=== PATIENT | female | born 1970 | race Caucasian/White ===

== ENCOUNTER 2022-02-15 15:16 | Inpatient (IN) ==
[2022-02-15] MEDS ORDERED: ONDANSETRON 4 MG/2 ML VIAL IV STA (18:17)
[2022-02-15] MEDS ORDERED: SODIUM CHLORIDE 0.9% 1,000 ML IV STA (18:17)
[2022-02-15] MEDS ORDERED: cefTRIAXone 1,000 MG in SODIUM CHLORIDE 0.9% 100 ML IV STA (18:17)
[2022-02-15] MEDS ORDERED: DOXYCYCLINE HYCLATE INJ 100 MG in SODIUM CHLORIDE 0.9% 100 ML IV STA (19:26)
[2022-02-15] MEDS ORDERED: metroNIDAZOLE INJ 500 MG/100 ML PREMIX IV STA (19:26)
[2022-02-15 19:32] LABS: Basophils % 0.4 % (0.0-0.8); Hematocrit 39.5 VOL% (35.7-47.0); Hemoglobin 13.4 GM/DL (12.0-16.0); Immature Granulocytes % 0.4 %; Immature Granulocytes Absolute 0.03 #; Lymphocytes # 0.9 10*3/uL (1.4-4.0); Lymphocytes % 12.8 % (21.3-54.2); Mean Corpuscular HGB Conc 33.9 GM/DL (32-36); Mean Corpuscular Volume 90.4 FL (87-102); Monocytes # 0.2 10*3/uL (0.11-0.8); Monocytes % 3.4 % (1.7-12.7); Platelet Count 143 T/CUMM (130-400); Red Blood Count 4.37 MC/CUMM (3.8-5.5); Red Cell Distribution Width 13.2 % (9.3-17.3); White Blood Count 6.7 T/CUMM (4-12)
[2022-02-15 19:51] LABS: Band Neutrophils 13 % (0-10); Lymphocytes 8 % (20-55); Myelocytes 1 %; Total Cells Counted 100
[2022-02-15 19:52] LABS: Albumin 3.3 G/DL (3.4-5.0); Bilirubin,Total 0.4 MG/DL (0.20-1.00); Calcium 8.4 MG/DL (8.5-10.1); Osmolality,Calculated 266.8 MOS/KG (273-304); Platelet Estimate Adequate; Total Protein 6.8 G/DL (6.4-8.2)
[2022-02-15 20:35] LABS: Hyaline Casts,Urine 23 /LPF (0-3); Mucus,Urine Occasional /LPF (Occasional); RBC,Urine 614 /HPF (0-4)
[2022-02-15 20:36] LABS: Bilirubin,Urine Negative (Negative); Blood, Urine Large mg/dL (Negative); Glucose,Urine (UA) Negative (Negative); Ketones,Urine Negative (Negative); Nitrite,Urine Negative (Negative); Protein,Urine 100 mg/dL (Negative); Urine Appearance Slightly Cloudy (Clear); Urine Color Yellow (Yellow); Urine Specific Gravity 1.025 (1.001-1.035); Urine Urobilinogen 0.2 eU/dL (<2.0); Urine pH 5.5 (4.5-8.0)
[2022-02-15] MEDS ORDERED: ONDANSETRON 4 MG/2 ML VIAL IV PRN (20:49)
[2022-02-15] MEDS ORDERED: DEXTROSE 10% 250 ML BAG IV PRN (20:49)
[2022-02-15] MEDS ORDERED: ACETAMINOPHEN 325 MG TABLET PO PRN (20:49)
[2022-02-15] MEDS ORDERED: GLUCAGON 1 MG VIAL IM PRN (20:49)
[2022-02-15 20:51] LABS: Barbiturates Screen,Urine Negative (Negative); Benzodiazepines Screen,Urine Negative (Negative); Cannabinoid Screen,Urine Positive (Negative); Opiate Screen,Urine Negative (Negative); Phencyclidine Screen,Urine Negative (Negative)
[2022-02-15] MEDS: SODIUM CHLORIDE 0.9% 1,000 ML IV SCH (22:55)
[2022-02-16] MEDS: metroNIDAZOLE INJ 500 MG/100 ML PREMIX IV SCH ×3 (06:00→23:49)
[2022-02-16] MEDS: SODIUM CHLORIDE 0.9% 1,000 ML IV SCH ×2 (06:03→14:35)
[2022-02-16 06:39] LABS: Basophils % 0.2 % (0.0-0.8); Hematocrit 34.3 VOL% (35.7-47.0); Hemoglobin 11.7 GM/DL (12.0-16.0); Immature Granulocytes % 0.4 %; Immature Granulocytes Absolute 0.02 #; Lymphocytes # 1.1 10*3/uL (1.4-4.0); Lymphocytes % 21.4 % (21.3-54.2); Mean Corpuscular HGB Conc 34.1 GM/DL (32-36); Mean Corpuscular Volume 90.5 FL (87-102); Mean Platelet Volume 9.9 FL (9.6-12.0); Monocytes # 0.3 10*3/uL (0.11-0.8); Monocytes % 5.1 % (1.7-12.7); Neutrophils % 72.9 % (38.7-73.9); Platelet Count 141 T/CUMM (130-400); Red Blood Count 3.79 MC/CUMM (3.8-5.5); Red Cell Distribution Width 13.2 % (9.3-17.3); White Blood Count 5.1 T/CUMM (4-12)
[2022-02-16 06:51] LABS: Alanine Aminotransferase 18 U/L (13-56); Albumin 2.5 G/DL (3.4-5.0); Alkaline Phosphatase 60 U/L (45-117); Aspartate Amino Transferase 26 U/L (0-37); Bilirubin,Total < 0.39 MG/DL (0.20-1.00); Blood Urea Nitrogen 26 MG/DL (7-18); Calcium 7.6 MG/DL (8.5-10.1); Carbon Dioxide 19 MMOL/L (21-32); Chloride 108 MMOL/L (98-107); Glucose 93 MG/DL (74-106); Potassium 3.1 MMOL/L (3.5-5.1); Sodium 136 MMOL/L (136-145); Total Protein 5.9 G/DL (6.4-8.2)
[2022-02-16 07:19] LABS: Band Neutrophils 12 % (0-10); Lymphocytes 18 % (20-55); Total Cells Counted 100
[2022-02-16 07:21] LABS: Platelet Estimate Adequate
[2022-02-16] MEDS ORDERED: SODIUM CHLORIDE 0.9% 1,000 ML IV ONE (08:00)
[2022-02-16] MEDS: DOXYCYCLINE HYCLATE INJ 100 MG in SODIUM CHLORIDE 0.9% 100 ML IV SCH ×2 (08:38→21:53)
[2022-02-16] MEDS: PANTOPRAZOLE 40 MG TABLET PO SCH (08:38)
[2022-02-16] MEDS ORDERED: LACTATED RINGERS 1,000 ML IV ONE ×2 (09:05→10:41)
[2022-02-16] MEDS ORDERED: POTASSIUM CHLORIDE 20 MEQ TABLET PO ONE (11:00)
[2022-02-16] MEDS: LACTATED RINGERS 1,000 ML IV SCH ×2 (16:00→21:53)
[2022-02-16] MEDS: cefTRIAXone 1,000 MG in SODIUM CHLORIDE 0.9% 100 ML IV SCH (17:09)
[2022-02-17 05:10] LABS: Basophils % 0.3 % (0.0-0.8); Eosinophils # 0.1 10*3/uL (0.0-0.87); Eosinophils % 1.7 % (0.00-10.9); Hematocrit 30.3 VOL% (35.7-47.0); Immature Granulocytes % 0.9 %; Immature Granulocytes Absolute 0.03 #; Lymphocytes # 1.4 10*3/uL (1.4-4.0); Lymphocytes % 39.2 % (21.3-54.2); Mean Corpuscular Volume 92.1 FL (87-102); Mean Platelet Volume 10.2 FL (9.6-12.0); Monocytes # 0.2 10*3/uL (0.11-0.8); Monocytes % 6.5 % (1.7-12.7); Neutrophils % 51.4 % (38.7-73.9); Platelet Count 131 T/CUMM (130-400); Red Blood Count 3.29 MC/CUMM (3.8-5.5); Red Cell Distribution Width 13.5 % (9.3-17.3); White Blood Count 3.5 T/CUMM (4-12)
[2022-02-17 05:30] LABS: Risk Ratio 5.76
[2022-02-17 05:43] LABS: Eosinophils 1 % (0-10); Lymphocytes 31 % (20-55); Platelet Estimate Adequate; Total Cells Counted 100
[2022-02-17 05:45] LABS: Alanine Aminotransferase 14 U/L (13-56); Albumin 2.1 G/DL (3.4-5.0); Alkaline Phosphatase 52 U/L (45-117); Aspartate Amino Transferase 26 U/L (0-37); Bilirubin,Total < 0.39 MG/DL (0.20-1.00); Blood Urea Nitrogen 13 MG/DL (7-18); Calcium 7.7 MG/DL (8.5-10.1); Carbon Dioxide 18 MMOL/L (21-32); Chloride 117 MMOL/L (98-107); Glucose 78 MG/DL (74-106); Osmolality,Calculated 284.8 MOS/KG (273-304); Potassium 3.4 MMOL/L (3.5-5.1); Sodium 144 MMOL/L (136-145); Total Protein 5.1 G/DL (6.4-8.2)
[2022-02-17] MEDS: metroNIDAZOLE INJ 500 MG/100 ML PREMIX IV SCH ×3 (05:47→23:11)
[2022-02-17] MEDS ORDERED: POTASSIUM CHLORIDE INJ 30 MEQ in SODIUM CHLORIDE 0.45% 1,000 ML IV SCH (09:00)
[2022-02-17] MEDS: PANTOPRAZOLE 40 MG TABLET PO SCH (09:55)
[2022-02-17] MEDS: DOXYCYCLINE HYCLATE INJ 100 MG in SODIUM CHLORIDE 0.9% 100 ML IV SCH ×2 (09:56→21:19)
[2022-02-17] MEDS ORDERED: POTASSIUM CHLORIDE 20 MEQ TABLET PO ONE (10:13)
[2022-02-17 14:28] LABS: Calcium 7.8 MG/DL (8.5-10.1); Osmolality,Calculated 281.1 MOS/KG (273-304); Potassium 3.5 MMOL/L (3.5-5.1)
[2022-02-17] MEDS ORDERED: MAGNESIUM SULF RIDER 2 GM/50 ML PREMIX IV ONE (15:00)
[2022-02-17] MEDS: SODIUM BICARB INJ 50 MEQ in SODIUM CHLORIDE 0.45% 1,000 ML IV SCH (15:40)
[2022-02-17] MEDS: cefTRIAXone 1,000 MG in SODIUM CHLORIDE 0.9% 100 ML IV SCH (17:37)
[2022-02-18] MEDS: SODIUM BICARB INJ 50 MEQ in SODIUM CHLORIDE 0.45% 1,000 ML IV SCH (03:28)
[2022-02-18] MEDS: metroNIDAZOLE INJ 500 MG/100 ML PREMIX IV SCH (06:07)
[2022-02-18 06:31] LABS: Basophils % 0.3 % (0.0-0.8); Eosinophils # 0.1 10*3/uL (0.0-0.87); Eosinophils % 2.9 % (0.00-10.9); Hemoglobin 10.2 GM/DL (12.0-16.0); Immature Granulocytes % 0.9 %; Immature Granulocytes Absolute 0.03 #; Lymphocytes # 1.2 10*3/uL (1.4-4.0); Lymphocytes % 34.2 % (21.3-54.2); Mean Corpuscular HGB Conc 32.9 GM/DL (32-36); Mean Corpuscular Volume 92.5 FL (87-102); Mean Platelet Volume 9.5 FL (9.6-12.0); Monocytes # 0.3 10*3/uL (0.11-0.8); Monocytes % 7.3 % (1.7-12.7); Neutrophils % 54.4 % (38.7-73.9); Platelet Count 161 T/CUMM (130-400); Red Blood Count 3.35 MC/CUMM (3.8-5.5); Red Cell Distribution Width 13.7 % (9.3-17.3); White Blood Count 3.4 T/CUMM (4-12)
[2022-02-18 06:54] LABS: Eosinophils 2 % (0-10); Lymphocytes 29 % (20-55); Total Cells Counted 100
[2022-02-18 06:55] LABS: Microcytosis Slight; Platelet Estimate Adequate
[2022-02-18 07:11] LABS: Calcium 7.7 MG/DL (8.5-10.1); Osmolality,Calculated 286.7 MOS/KG (273-304); Potassium 3.6 MMOL/L (3.5-5.1)
[2022-02-18] MEDS: PANTOPRAZOLE 40 MG TABLET PO SCH (08:00)
[2022-02-18 08:26] VITALS: BP 106/69
== END 2022-02-18 11:28 | disposition home or self-care (01) | DRG 758 ==
LOC: N.ED 15:16 → N.EDINP 15:16 → N.3E 21:18 → SUATTDRO 02-16 09:02
PROVIDERS: ADMIT Internal Medicine; ATTEND Internal Medicine